=== PATIENT | female | born 1945 | race Caucasian/White ===

== ENCOUNTER → 2019-02-03 | Outpatient (CLI) | payer OTHER ==
[~2019-02-03] MED LIST: ALIGN4 MG PO; CLARINEX5 MG PO; NEURONTIN 300300 M1 PO; NORCO 5-325 TA1 EACH PO
== END ==
LOC: CAT 10:32
DX: G31.9 Degenerative disease of nervous system, unspecified (principal); I65.23 Occlusion and stenosis of bilateral carotid arteries; R90.82 White matter disease, unspecified

== ENCOUNTER → 2020-08-06 | Outpatient (CLI) | payer OTHER | LOC: CAT 08:13 → EDSTATUS 08:54 → CAT 08:55 | PROVIDERS: ATTEND Neuromusculoskeletal Medicine & OMM | DX: R31.9 Hematuria, unspecified (principal) ==